=== PATIENT | male | born 1960 | race Caucasian/White ===

== ENCOUNTER 2021-01-20 19:21 | Emergency (ER) | payer OTHER, SELFPAY ==
[2021-01-20 19:27] VITALS: BP 142/96; PULSE 90; RESP 20; TEMP 37.1; O2SAT 98
--- NOTE | 2021-01-20 20:20 | ED.EAR ---
HPI - Ear Problem General Chief complaint: Ear Stated complaint: Part of hearing aid stuck in right Ear Time Seen by Provider: 01/20/21 19:35 Source: patient and RN notes reviewed Mode of arrival: ambulatory Limitations: no limitations History of Present Illness HPI Narrative: 60-year-old male who presents to ED express care with plastic piece of hearing aid stuck into his right ear canal. Patient states [facility] went to [facility] in [place] this morning and they flushed his ear and were unable to remove the piece and referred him to an ENT. Patient states he called the ENT office at 9 this morning did not get any answer has awaited for return call all day with none received. Patient showed up here at this time to see if we would be able to remove hearing aid piece from his right ear. Patient states that he has some intermittent discomfort to his right ear has not taken any OTC medications. MD Complaint: foreign body Related Data Home Medications Medication Instructions Recorded Confirmed No Home Medications 01/20/21 01/20/21 Allergies Allergy/AdvReac Type Severity Reaction Status Date / Time codeine Allergy Severe Shakiness Verified 01/20/21 20:22 Review of Systems Review of Systems: CONSTITUTIONAL: Denies fever, chills, or sweats. EYES: Denies visual changes, redness, or discharge. ENT: Denies rhinorrhea, congestion, sore throat, positive for intermittent mild discomfort stated to right ear, foreign body in ear CARDIOVASCULAR: Denies chest pain, palpitations, or edema. RESPIRATORY: Denies cough or dyspnea. GASTROINTESTINAL: Denies abdominal pain, nausea, vomiting, or diarrhea. GENITOURINARY: Denies dysuria or hematuria. SKIN: Denies rash or itching. MUSCULOSKELETAL: Denies back pain, joint pain, or myalgia. NEUROLOGIC: Denies headache, numbness, or weakness. PSYCHIATRIC: Denies anxiety or depression. All systems reviewed & are unremarkable except as noted in HPI and below PMFSH Past Medical History Medical History (Updated 01/21/21 @ 21:35 by Hyacinth Pemberton NP) No pertinent past medical history Surgical History Surgical History (Updated 01/21/21 @ 21:26 by Hyacinth Pemberton NP) No history of previous surgery Family History Family History (Updated 01/21/21 @ 21:27 by Hyacinth Pemberton NP) Other No significant family history Social History Social History (Updated 01/21/21 @ 21:25 by Hyacinth Pemberton NP) Smoking status: Current every day smoker Alcohol intake: unknown Substance use: unknown Living arrangements: with family Gender identity (if verbalized by the patient): Male Comments At time of signature, agree with nursing past medical, surgical, social and family history. There is no relevant family history pertinent to the presenting complaint Exam Narrative: GENERAL: Well-appearing, well-nourished, and in no acute distress. HEAD: Normocephalic, atraumatic. EYES: PERRLA and EOMI. ENT: Nares clear, no rhinorrhea or epistaxis. Mucous membranes moist.Right TM obscured by foreign body which is a piece of patient's hearing aid, Left TM normal with good light reflex, throat pink with no lesions or exudates no tonsil enlargement. NECK: Supple.no lymphadenopathy CHEST: Clear to auscultation. No respiratory distress.SAO2 98% on room air HEART: Regular rate and rhythm. No murmur heard. Normal peripheral pulses. ABDOMEN: Soft, nontender, nondistended, normal active bowel sounds. EXTREMITIES: Normal range of motion. No edema. SKIN: Warm, dry, no rash. NEURO: No focal deficits. Alert and oriented x3. Course Vital Signs Vital signs: Vital Signs Temperature 37.1 C 01/20/21 19:27 Pulse Rate 90 01/20/21 19:27 Respiratory Rate 20 01/20/21 19:27 Blood Pressure 142/96 H 01/20/21 19:27 Pulse Oximetry 98 01/20/21 19:27 Temperature 37.1 C 01/20/21 19:27 Pulse Rate 90 01/20/21 19:27 Respiratory Rate 20 01/20/21 19:27 Blood Pressure 142/96 H 01/20/21 19:27 Pulse Ox
== END 2021-01-20 20:30 | disposition home or self-care (01) ==
PROVIDERS: Emergency Provider Registered Nurse
DX: T16.1XXA Foreign body in right ear, initial encounter (principal); F17.200 Nicotine dependence, unspecified, uncomplicated
CPT/HCPCS: 69200; 99212; G0463